=== PATIENT | male | born 1970 | race Caucasian/White ===

== ENCOUNTER 2021-09-25 11:58 | Outpatient (CLI) | payer OTHER, SELFPAY ==
[2021-09-25 12:30] VITALS: BMI 31.0
--- NOTE | 2021-09-25 12:30 | ECG_ITS ---
[facility] Test Date: 2021-09-25 Pat Name: Ayan Jung Department: Room: Gender: Male [employer]: Elisabet Gore : 1970 Requested By: Gracie Henderson Order Number: [id number] Martin MD: Zheng Elias M.D. Interpretive Statements NAME OF STUDY: TREADMILL STRESS TEST INDICATION: [bang, ] EXERCISE DATA: The patient was exercised by Rajinder protocol. Baseline heart rate was 83 beats per minute. Baseline blood pressure was 165/84 millimeters of mercury. Target heart rate was 143 beats per minute. Maximum heart rate achieved was 152, which was 106% of the target heart rate. Maximum blood pressure was 246/108 millimeters of mercury. Total exercise time was 7 minutes 43 seconds. Maximum METs achieved was 10.2, maximum VO2 was 35.7. The reason for ending the test was maximal effort achieved. The patient complained of shortness of breath during the stress test, which then resolved at the end of the test. ELECTROCARDIOGRAM: BASELINE: Showed sinus rhythm, right bundle branch block, no significant ST-T changes at the baseline noted. [] EXERCISE: At the peak exercise level, [] No significant ST-T changes suggestive of ischemia noted. [] RECOVERY: During the recovery period, heart rate dropped appropriately. No significant ST-T changes in the recovery suggestive of ischemia noted. [] CONCLUSION: 1. Exercise capacity good 2. Heart rate response was appropriate 3. Blood pressure response was hypertensive 4. Symptoms not suggestive of ischemia. 5. EKG stress test was not suggestive of ischemia, however sensitivity of stress test is reduced because of right bundle branch block. Electronically Signed On 09-27-2021 13:28:49 RAP ARTIST by Zheng Elias M.D. [id number]
[2021-09-25 13:12] VITALS: BP 150/104; PULSE 105
== END 2021-09-25 11:59 | disposition home or self-care (01) ==
LOC: CDL 12:04
PROVIDERS: PCP Nurse Practitioner; Visit Provider Nurse Practitioner
DX: R06.09 Other forms of dyspnea (principal)
CPT/HCPCS: 93017

== ENCOUNTER → 2022-10-21 09:44 | Outpatient (BNVA) | payer OTHER, SELFPAY | PROVIDERS: PCP Family Medicine; Visit Provider Family Medicine | DX: Z00.00 Encounter for general adult medical examination without abnormal findings (principal); I10 Essential (primary) hypertension; F41.1 Generalized anxiety disorder; Z76.89 Persons encountering health services in other specified circumstances | CPT/HCPCS: 80053; 80061; 85025 ==

== ENCOUNTER → 2023-05-18 15:31 | Outpatient (BNVA) | payer OTHER, SELFPAY | PROVIDERS: PCP Family Medicine; Visit Provider Family Medicine | DX: I10 Essential (primary) hypertension (principal) | CPT/HCPCS: 80053; 80061; 85025 ==

== ENCOUNTER 2024-06-16 06:00 | Outpatient (CLI) | payer OTHER, SELFPAY | END 2024-06-16 06:01 | disposition home or self-care (01) | LOC: RAD 07-10 08:12 | PROVIDERS: PCP Family Medicine; Visit Provider Family Medicine | DX: D75.1 Secondary polycythemia (principal); I10 Essential (primary) hypertension | CPT/HCPCS: 80053; 80061; 85025 ==

== ENCOUNTER → 2025-07-27 09:02 | Outpatient (BNVA) | payer OTHER, SELFPAY | PROVIDERS: PCP Family Medicine; Visit Provider Family Medicine | DX: D75.1 Secondary polycythemia (principal); E78.5 Hyperlipidemia, unspecified | CPT/HCPCS: 80053; 80061; 85025 ==